=== PATIENT | female | born 1945 | race Caucasian/White ===

== ENCOUNTER 2017-04-20 09:24 | Emergency (ER) | payer MEDICARE ==
[2017-04-20] MEDS ORDERED: Sulfamethox/Trimethoprim DS 800/160* TAB PO ONE (11:48)
[2017-04-20] MEDS ORDERED: Cephalexin CAP* 500 MG PO ONE (11:48)
[2017-04-20 14:01] VITALS: BP 117/63
--- NOTE | 2017-04-24 08:59 | PN ---
Progress Note - Progress Note Date of Service: 04/20/17 Note: MRSA and s aureus negative on wound culture results. 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 placed on keflex and bactrim at discharge. appears to have susceptibility according to results. no further changes required at this time. patient has been following up with UC for dressing changes and re-check, appears to be improving.
--- NOTE | 2017-04-24 15:52 | ED ---
Minna Mares Gabriel scribed for Luis Armando Rai MD on 04/20/17 at 1153 . Skin Complaint - HPI Summary HPI Summary: This patient is a 71 year old F presenting to [facility] with a chief complaint of a cyst in the right hip crease since 04/16/17. The patient rates the pain 3/10 in severity. Symptoms aggravated by walking. Patient states the cyst began in the summer of this year and it was benign but since 04/16 it has been growing in size. At this time it began itching and has become erythematous. Patient is a type 2 diabetic and lets her sugar range from 120-250. She has a history of cysts and has had one on her jaw and back. - History of Current Complaint Chief Complaint: EDGeneral Time Seen by Provider: 04/20/17 11:24 Stated Complaint: POSSIBLE CYST ON RT LOWER APPENDAGE Hx Obtained From: Patient Onset/Duration: Started Days Ago - 4, Still Present Skin Exposure Onset/Duration: Days Ago - 4 Timing: Constant Onset Severity: Mild Current Severity: Moderate Pain Intensity: 3 Pain Scale Used: 0-10 Numeric Skin Location: Other: - right hip crease Character: Swelling, Redness Aggravating Symptom(s): Other: - walking Associated Signs & Symptoms: Negative - Allergy/Home Medications Allergies/Adverse Reactions: Allergies Allergy/AdvReac Type Severity Reaction Status Date / Time Ibuprofen [From Motrin] Allergy Severe Shakes Verified 04/20/17 09:37 PMH/Surg Hx/FS Hx/Imm Hx Endocrine/Hematology History: Reports: Hx Diabetes Denies: Hx Systemic Lupus Erythematosus Cardiovascular History: Denies: Hx Atrial Fibrillation, Hx Auto Implanted Cardiovert Defib, Hx Congestive Heart Failure, Hx Hypertension - HIGH BUT NOT ON MEDS, Hx Pacemaker/ ICD History: Denies: Hx Dialysis, Hx Renal Disease Musculoskeletal History: Denies: Hx Rheumatoid Arthritis Sensory History: Reports: Hx Hearing Aid Psychiatric History: Denies: Hx Panic Disorder - Cancer History Hx Chemotherapy: No Hx Radiation Therapy: No - Surgical History Surgery Procedure, Year, and Place: muscles in both eyes reconstructed, tonsilectomy, appendectomy, gender congruent surgery 2012, cyst removal BACK- [facility] 12/12/15. WISDOM TEETH REMOVAL Infectious Disease History: No Infectious Disease History: Denies: Traveled Outside the [place] in Last 30 Days - Family History Known Family History: Positive: None - no breast cancer, Diabetes Negative: Hypertension, Respiratory Disease, Seizure Disorder - Social History Alcohol Use: None Substance Use Type: Reports: None Smoking Status (MU): Never Smoked Tobacco Review of Systems Negative: Fever, Chills Negative: Erythema Negative: Sore Throat Negative: Chest Pain Negative: Shortness Of Breath, Cough Negative: Abdominal Pain, Vomiting, Nausea Negative: dysuria, hematuria Negative: Myalgia, Edema Positive: Other - cyst . Negative: Rash Neurological: Negative - dizziness All Other Systems Reviewed And Are Negative: Yes Physical Exam - Summary Physical Exam Summary: Constitutional: Well-developed, Well-nourished, Alert. (-) Distressed Skin: 2cm fluctuant area over the right inguinal crease, no lymphadenopathy HENT: Normocephalic; Atraumatic Eyes: Conjunctiva normal Neck: Musculoskeletal ROM normal neck. (-) JVD, (-) Stridor, (-) Tracheal deviation Cardio: Rhythm regular, rate normal, Heart sounds normal; Intact distal pulses; The pedal pulses are 2+ and symmetric. Radial pulses are 2+ and symmetric. (-) Murmur Pulmonary/Chest wall: Effort normal. (-) Respiratory distress, (-) Wheezes, (-) Rales Abd: Soft, (-) Tenderness, (-) Distension, (-) Guarding, (-) Rebound Musculoskeletal: (-) Edema Lymph: (-) Cervical adenopathy Neuro: Alert, Oriented x3 Psych: Mood and affect Normal Triage Information Reviewed: Yes Vital Signs On Initial Exam: Initial Vitals Temp Pulse Resp BP Pulse Ox 97.8 F 90 20 151/73 98 04/20/17 09:32 04/20/17 09:32 04/20/17 09:32 04/20/17 09:32 04/20/17 09:32 Vital Signs Reviewed: Yes - Sola Coma Scale Coma Scale Total: 15 Procedures - Incision and Drainage Site: right inguinal crease Anesthesia: Lidocaine Instrument(s): Scalpel Packing: Gauze Diagnostics - Vital Signs Vital Signs Temp Pulse Resp BP Pulse Ox 04/20/17 09:32 97.8 F 90 20 151/73 98 - Laboratory Lab Statement: Any lab studies that have been ordered have been reviewed, and results considered in the medical decision making process. Course/Dx - Course Assessment/Plan: This patient is a 71 year old F presenting to [facility] with a chief complaint of a cyst in the right hip crease since 04/16/17. The patient rates the pain 3/10 in severity. Symptoms aggravated by walking. Patient states the cyst began in the summer of this year and it was benign but since 04/16 it has been growing in size. At this time it began itching and has become erythematous. Patient is a type 2 diabetic and lets his sugar range from 120- 250. She has a history of cysts and has had one on her jaw and back. There was sebaceous material during the drainage. I suspected it began as a sebaceous cyst. Test results with no significant abnormalities except for blood glucose of 300. In the ED course the patient was given Keflex and Bactrim. Patient will be discharged with prescription for Keflex and Bactrim and follow up from Urgent care for repacking of gauze. The patient is agreeable with this plan. - Diagnoses Provider Diagnoses: Infected sebaceous cyst Discharge - Discharge Plan Condition: Stable Disposition: HOME Prescriptions: Cephalexin CAP* [Keflex CAP*] 500 mg PO QID #40 cap Sulfamethox/Trimethoprim DS* [Bactrim DS 800/160 TAB*] 1 tab PO BID #20 tab Patient Education Materials: Cephalexin (By mouth), Sulfamethoxazole/ Trimethoprim (By mouth) Referrals: Ari Abbott MD [Primary Care Provider] - Additional Instructions: Follow up with urgent care on Thursday and they should be change the packing. RETURN TO THE EMERGENCY DEPARTMENT FOR CHANGING OR WORSENING SYMPTOMS. The documentation as recorded by the Minna hood Gabriel accurately reflects the service I personally performed and the decisions made by , Luis Armando Rai MD.
== END 2017-04-20 14:00 | disposition home or self-care (01) ==
LOC: ED 09:24
DX: L72.3 Sebaceous cyst (principal); E11.9 Type 2 diabetes mellitus without complications; Z88.6 Allergy status to analgesic agent
CPT/HCPCS: 10060; 87070; 87076; 87077; 87186; 87205; 87640; 87641; 99282; A9270-GY

== ENCOUNTER 2017-04-22 13:59 | Emergency (ER) | payer MEDICARE ==
[2017-04-22 14:15] VITALS: BP 159/69
--- NOTE | 2017-04-22 14:58 | UC ---
HPI Wound/Suture Re-check - HPI Summary HPI Summary: seen 2 days ago and had an I&D of an abscess in right groin--Here to have packing and dressing changed - History Of Current Complaint Chief Complaint: UCSkin Stated Complaint: DRESSING CHANGE Time Seen by Provider: 04/22/17 14:24 Hx Obtained From: Patient Onset/Duration: Gradual Onset, Other - healing Surgical Site: right groin Severity: Mild - Allergies/Home Medications Allergies/Adverse Reactions: Allergies Allergy/AdvReac Type Severity Reaction Status Date / Time Ibuprofen [From Motrin] Allergy Severe Shakes Verified 04/20/17 09:37 Irbesartan Allergy DIZZINESS, Verified 04/22/17 14:23 NAUSEA Liraglutide [From Victoza] Allergy DIZZINESS, Verified 04/22/17 14:23 NAUSEA Lisinopril Allergy facial Verified 04/22/17 14:23 swelling Phenol [From Victoza] Allergy DIZZINESS, Verified 04/22/17 14:23 NAUSEA Propylene Glycol Allergy DIZZINESS, Verified 04/22/17 14:23 [From Victoza] NAUSEA PMH/Surg Hx/FS Hx/Imm Hx Previously Healthy: No Endocrine History: Diabetes Cardiovascular History: Hypertension - Surgical History Surgical History: Yes Surgery Procedure, Year, and Place: muscles in both eyes reconstructed, tonsilectomy, appendectomy, gender congruent surgery 2012, cyst removal BACK- [facility] 12/12/15. WISDOM TEETH REMOVAL - Family History Known Family History: Positive: None - no breast cancer - Social History Occupation: Retired Lives: With Family Alcohol Use: None Substance Use Type: None Smoking Status (MU): Never Smoked Tobacco Review of Systems Constitutional: Negative Skin: Negative, Other - no drainage from site-wound Clean and dry some sloughing tissue no erythema no pain Eyes: Negative ENT: Negative Respiratory: Negative Cardiovascular: Negative Gastrointestinal: Negative Genitourinary: Negative Motor: Negative Neurovascular: Negative Musculoskeletal: Negative Neurological: Negative Psychological: Negative Is Patient Immunocompromised?: No All Other Systems Reviewed And Are Negative: Yes Physical Exam Triage Information Reviewed: Yes Appearance: Well-Appearing, No Pain Distress, Well-Nourished Vital Signs: Initial Vital Signs Temp 98.3 F 04/22/17 14:12 Pulse 76 04/22/17 14:12 Resp 16 04/22/17 14:12 BP 159/69 04/22/17 14:12 Pulse Ox 100 04/22/17 14:12 Vital Signs Reviewed: Yes Eye Exam: Normal Eyes: Positive: Conjunctiva Clear ENT Exam: Normal ENT: Positive: Normal ENT inspection, Hearing grossly normal, Pharynx normal. Negative: Nasal congestion, Nasal drainage, Trismus, Muffled voice, Hoarse voice , Dental tenderness, Sinus tenderness Neck exam: Normal Neck: Positive: Supple, Nontender Respiratory Exam: Normal Respiratory: Positive: Chest non-tender, No respiratory distress, No accessory muscle use Cardiovascular Exam: Normal Cardiovascular: Positive: RRR, Pulses Normal, Brisk Capillary Refill Abdominal Exam: Normal Abdomen Description: Positive: Nontender, Soft Musculoskeletal Exam: Normal Musculoskeletal: Positive: Strength Intact, ROM Intact, No Edema Neurological Exam: Normal Neurological: Positive: Alert Psychological Exam: Normal Skin Exam: Other Skin: Positive: Other - no drainage from site-wound Clean and dry some sloughing tissue no erythema no pain Re-Evaluation - Re-Evaluation First Eval Change: Improved - packing removed, wound washed with betadine, repacked with plain packing Mepilex dressing applied---Patient tolerated wellopen are 1.5 cm diameter sloughing skin about 1 cm around incision Course/Dx - Course Course Of Treatment: continue antibiodics as planned, return in 2 days for dressing change, follow blood pressure with pcp - Differential Dx - Laceration/Wound Provider Diagnoses: Healing abrcess right groin s/p I&D, Poorly controlled hypertension Discharge - Discharge Plan Condition: Stable Disposition: HOME Patient Education Materials: Wound Healing and Your Diet (ED), Hypertension (ED ) Referrals: Ari Abbott MD [Primary Care Provider] - 1 Week Additional Instructions: Return in 2 days for dressing change and packing removal---
== END 2017-04-22 15:10 | disposition home or self-care (01) ==
LOC: UCEAST 13:59
DX: L02.214 Cutaneous abscess of groin (principal); I10 Essential (primary) hypertension; Z88.6 Allergy status to analgesic agent; Z88.8 Allergy status to other drugs, medicaments and biological substances
CPT/HCPCS: 99211; G0463

== ENCOUNTER 2017-04-25 11:49 | Emergency (ER) | payer MEDICARE ==
[2017-04-25 13:59] VITALS: BP 155/68
--- NOTE | 2017-04-25 14:23 | UC ---
HPI Wound/Suture Re-check - HPI Summary HPI Summary: comes for dressing change of I&D done 5 days ago, denies pain, fever or d/c from wound, had iodoform packing 4 days ago. - History Of Current Complaint Chief Complaint: UCWounds Stated Complaint: DRESSING CHANGE Time Seen by Provider: 04/25/17 13:58 Hx Obtained From: Patient Onset/Duration: Still Present Severity: Mild Pain Scale Used: 0-10 Numeric - 0 - Allergies/Home Medications Allergies/Adverse Reactions: Allergies Allergy/AdvReac Type Severity Reaction Status Date / Time Ibuprofen [From Motrin] Allergy Severe Shakes Verified 04/25/17 13:59 Irbesartan Allergy DIZZINESS, Verified 04/25/17 13:59 NAUSEA Liraglutide [From Victoza] Allergy DIZZINESS, Verified 04/25/17 13:59 NAUSEA Lisinopril Allergy facial Verified 04/25/17 13:59 swelling Phenol [From Victoza] Allergy DIZZINESS, Verified 04/25/17 13:59 NAUSEA Propylene Glycol Allergy DIZZINESS, Verified 04/25/17 13:59 [From Victoza] NAUSEA PMH/Surg Hx/FS Hx/Imm Hx Previously Healthy: Yes Endocrine History: Diabetes, Dyslipidemia Cardiovascular History: Hypertension - Surgical History Surgical History: Yes Surgery Procedure, Year, and Place: muscles in both eyes reconstructed, tonsilectomy, appendectomy, gender congruent surgery 2012, cyst removal BACK- [facility] 12/12/15. WISDOM TEETH REMOVAL - Family History Known Family History: Positive: None - no breast cancer - Social History Alcohol Use: None Substance Use Type: None Smoking Status (MU): Never Smoked Tobacco Review of Systems Constitutional: Negative All Other Systems Reviewed And Are Negative: Yes Physical Exam Triage Information Reviewed: Yes Appearance: Well-Appearing, Obese Vital Signs: Initial Vital Signs Temp 97.1 F 04/25/17 13:56 Pulse 77 04/25/17 13:56 Resp 18 04/25/17 13:56 BP 155/68 04/25/17 13:56 Pulse Ox 100 04/25/17 13:56 Vital Signs Reviewed: Yes Eye Exam: Normal Skin Exam: Other - small indurated tissue with central incision and healing abscess with iodoform packing on right inguinal area Course/Dx - Course Course Of Treatment: return in 4 days for dressing change - Differential Dx - Laceration/Wound Provider Diagnoses: abscess sebaceous cyst s/p I&D Discharge - Discharge Plan Condition: Stable Disposition: HOME Patient Education Materials: Abscess (ED) Referrals: Ari Abbott MD [Primary Care Provider] -
== END 2017-04-25 14:32 | disposition home or self-care (01) ==
LOC: UCEAST 11:49
DX: L02.214 Cutaneous abscess of groin (principal); L72.3 Sebaceous cyst; Z88.6 Allergy status to analgesic agent; Z88.8 Allergy status to other drugs, medicaments and biological substances; E11.9 Type 2 diabetes mellitus without complications; E78.5 Hyperlipidemia, unspecified; I10 Essential (primary) hypertension; E66.9 Obesity, unspecified
CPT/HCPCS: 99211; G0463

== ENCOUNTER 2022-09-27 16:15 | Inpatient (IN) ==
[2022-09-27 19:02] LABS: Hematocrit 33.5 % (35-45); Mean Corpuscular Hemoglobin 26.2 pg (27-33); Mean Corpuscular Hgb Conc 32.8 g/dL (31-36); Mean Corpuscular Volume 79.7 fL (80-97); Mean Platelet Volume 8.1 fL (7.5-11.2); Platelet Count 335 10^3/uL (150-450); Red Cell Distribution Width 19.2 % (12-17); White Blood Count 19.6 10^3/uL (3.8-11.8)
[2022-09-27 19:23] LABS: Albumin 4.2 g/dL (3.2-5.2); Albumin/Globulin Ratio 1.3 (1-3); Calcium 9.7 mg/dL (8.6-10.3); Creatinine, Serum 1.31 mg/dL (0.51-0.95); Globulin 3.3 g/dL (2-4); Potassium 4.1 mmol/L (3.5-5.0); Total Bilirubin 0.6 mg/dL (0.2-1.0); Total Protein 7.5 g/dL (6.4-8.9); eGFR CKD-EPI 42.5 (>60)
[2022-09-27 19:41] LABS: ABS Basophils 0.1 10^3/uL (0.0-0.1); ABS Eosinophils 2.1 10^3/uL (0.0-0.5); ABS Lymphocytes 0.7 10^3/uL (1.0-4.8); ABS Neutrophils 14.8 10^3/uL (1.5-7.6); ABS Nucleated RBC 0.01 10^3/ul; Eosinophil % 10.7 %; Lymphocyte % 3.4 %; Nucleated Red Blood Cells % 0.1 /100 WBC (0.0-0.4)
[2022-09-27 20:12] LABS: C Reactive Protein 56.41 mg/L (<8.01); Magnesium 1.8 mg/dL (1.9-2.7)
[2022-09-27 20:41] LABS: TSH Ultra Thyroid Stim Horm 2.71 mcIU/mL (0.34-5.60)
[2022-09-27 21:00] LABS: Urine Appearance Clear; Urine Bilirubin Negative (Negative); Urine Blood Negative (Negative); Urine Color Yellow; Urine Glucose Negative (Negative); Urine Ketones Negative (Negative); Urine Nitrite Negative (Negative); Urine Protein 2+(100 mg/dL) (Negative); Urine Specific Gravity 1.015 (1.002-1.030); Urine Urobilinogen Negative (Negative)
[2022-09-27 21:11] LABS: Urine Bacteria Absent (Absent); Urine Red Blood Cell Trace(0-2/hpf) (Absent); Urine Squamous Epithelial Cell Present (Absent); Urine White Blood Cell Trace(0-5/hpf) (Absent)
[2022-09-27] MEDS ORDERED: Iodixanol (CONTRAST) 320 MG/ML 100 ML SDV IV ONE (22:11)
[2022-09-28] MEDS ORDERED: Dextrose 50% Syringe 50 ml 25 GM/50 ML SYRINGE IV PUSH PRN (04:05)
[2022-09-28 08:18] LABS: Ferritin 1439.9 ng/mL (11-307)
[2022-09-28] MEDS: Fluticasone NASAL SPRAY 50MCG 16 gm SPRAY BTL BOTH NARES SCH (09:46)
[2022-09-28] MEDS ORDERED: Magnesium Sulfate 2 gm BAG 2 GM/50 ML BAG IVPB ONE (09:56)
[2022-09-28] MEDS: INSULIN GLARGINE LIXISENATIDE SUBCUT SCH (15:24)
[2022-09-28] MEDS: INSUL SUBCUT SCH (15:24)
[2022-09-28] MEDS: PTO: Metformin ER 750 mg TAB (NF) PO SCH (20:03)
[2022-09-28] MEDS: AMLODIPINE BESYLATE 2.5 MG PO SCH (20:03)
[2022-09-28] MEDS: ESTRADIOL 2 MG PO SCH (20:03)
[2022-09-28] MEDS ORDERED: Enoxaparin 40 MG/0.4 ML SYR SUBCUT SCH (21:00)
[2022-09-29 06:42] LABS: Hematocrit 29.2 % (35-45); Hemoglobin 9.7 g/dL (11.5-14.3); Mean Corpuscular Hemoglobin 26.8 pg (27-33); Mean Corpuscular Hgb Conc 33.1 g/dL (31-36); Mean Corpuscular Volume 81.1 fL (80-97); Platelet Count 266 10^3/uL (150-450); Red Cell Distribution Width 19.5 % (12-17); White Blood Count 16.5 10^3/uL (3.8-11.8)
[2022-09-29 06:44] LABS: INR 1.26 (0.88-1.18)
[2022-09-29 06:58] LABS: Calcium 8.5 mg/dL (8.6-10.3); Creatinine, Serum 1.26 mg/dL (0.51-0.95); Magnesium 1.9 mg/dL (1.9-2.7); eGFR CKD-EPI 44.5 (>60)
[2022-09-29 07:01] LABS: ABS Basophils 0.2 10^3/uL (0.0-0.1); ABS Eosinophils 2.2 10^3/uL (0.0-0.5); ABS Lymphocytes 0.7 10^3/uL (1.0-4.8); ABS Monocytes 1.5 10^3/uL (0.0-0.9); ABS Neutrophils 11.9 10^3/uL (1.5-7.6); Eosinophil % 13.6 %; Lymphocyte % 4.3 %
[2022-09-29] MEDS ORDERED: Iron Sucrose 200 MG in NS 0.9% 100 ml BAG 100 ML IVPB ONE (09:54)
[2022-09-29] MEDS: PIOGLITAZONE 15 MG PO SCH (11:13)
[2022-09-29] MEDS: Fluticasone NASAL SPRAY 50MCG 16 gm SPRAY BTL BOTH NARES SCH (11:13)
[2022-09-29] MEDS: INSUL SUBCUT SCH (14:12)
[2022-09-29] MEDS: INSULIN GLARGINE LIXISENATIDE SUBCUT SCH (14:12)
[2022-09-29] MEDS ORDERED: fentaNYL 100 mcg/2 ml 50 MCG/ML VIAL ONE (15:23)
[2022-09-29] MEDS: ESTRADIOL 2 MG PO SCH (19:49)
[2022-09-29] MEDS: PTO: Metformin ER 750 mg TAB (NF) PO SCH (19:49)
[2022-09-29] MEDS: AMLODIPINE BESYLATE 2.5 MG PO SCH (19:50)
[2022-09-30 07:00] LABS: Hematocrit 26.9 % (35-45); Hemoglobin 8.9 g/dL (11.5-14.3); Mean Corpuscular Hemoglobin 27.1 pg (27-33); Mean Corpuscular Hgb Conc 33.1 g/dL (31-36); Mean Corpuscular Volume 81.9 fL (80-97); Mean Platelet Volume 8.3 fL (7.5-11.2); Platelet Count 234 10^3/uL (150-450); Red Blood Count 3.28 10^6/uL (3.63-4.92); Red Cell Distribution Width 19.9 % (12-17); White Blood Count 16.5 10^3/uL (3.8-11.8)
[2022-09-30 07:06] LABS: INR 1.25 (0.88-1.18)
[2022-09-30 07:18] LABS: Calcium 8.1 mg/dL (8.6-10.3); Creatinine, Serum 1.24 mg/dL (0.51-0.95); Magnesium 1.9 mg/dL (1.9-2.7); Potassium 4.2 mmol/L (3.5-5.0); eGFR CKD-EPI 45.4 (>60)
[2022-09-30 08:11] LABS: ABS Basophils 0.1 10^3/uL (0.0-0.1); ABS Eosinophils 2.2 10^3/uL (0.0-0.5); ABS Lymphocytes 0.7 10^3/uL (1.0-4.8); ABS Monocytes 1.7 10^3/uL (0.0-0.9); ABS Neutrophils 11.9 10^3/uL (1.5-7.6); Anisocytosis 2+; Eosinophil % 13.2 %; Polychromasia 1+
[2022-09-30] MEDS: PIOGLITAZONE 15 MG PO SCH (09:34)
[2022-09-30] MEDS: Fluticasone NASAL SPRAY 50MCG 16 gm SPRAY BTL BOTH NARES SCH (09:42)
[2022-09-30] MEDS ORDERED: Iron Sucrose 200 MG in NS 0.9% 100 ml BAG 100 ML IVPB ONE (09:55)
[2022-09-30] MEDS: INSULIN GLARGINE LIXISENATIDE SUBCUT SCH (13:54)
[2022-09-30] MEDS: INSUL SUBCUT SCH (13:54)
[2022-09-30] MEDS: PTO: Metformin ER 750 mg TAB (NF) PO SCH (20:11)
[2022-09-30] MEDS: AMLODIPINE BESYLATE 2.5 MG PO SCH (20:12)
[2022-09-30] MEDS: ESTRADIOL 2 MG PO SCH (20:12)
[2022-10-01] MEDS: Fluticasone NASAL SPRAY 50MCG 16 gm SPRAY BTL BOTH NARES SCH (09:13)
[2022-10-01] MEDS: PIOGLITAZONE 15 MG PO SCH (09:13)
[2022-10-01] MEDS: Polyethylene Glycol 3350 17 GM PACKET PO PRN (09:14)
[2022-10-01] MEDS: INSULIN GLARGINE LIXISENATIDE SUBCUT SCH (13:39)
[2022-10-01] MEDS: INSUL SUBCUT SCH (13:39)
[2022-10-01 17:46] LABS: Anaplasma phagocytophilum Negative (Negative); B. miyamotoi PCR, B Negative (Negative); Babesia divergens/MO-1 Negative (Negative); Babesia ducani Negative (Negative); Ehrlichia chaffeensis Negative (Negative); Ehrlichia ewingii/canis Negative (Negative); Ehrlichia muris eauclairensis Negative (Negative)
[2022-10-01] MEDS: PTO: Metformin ER 750 mg TAB (NF) PO SCH (20:36)
[2022-10-01] MEDS: AMLODIPINE BESYLATE 2.5 MG PO SCH (20:37)
[2022-10-01] MEDS: ESTRADIOL 2 MG PO SCH (20:41)
[2022-10-02] MEDS: Polyethylene Glycol 3350 17 GM PACKET PO PRN (09:05)
[2022-10-02] MEDS: PIOGLITAZONE 15 MG PO SCH (09:05)
[2022-10-02] MEDS: Fluticasone NASAL SPRAY 50MCG 16 gm SPRAY BTL BOTH NARES SCH (09:06)
[2022-10-02] MEDS: INSUL SUBCUT SCH (13:18)
[2022-10-02] MEDS: INSULIN GLARGINE LIXISENATIDE SUBCUT SCH (13:18)
[2022-10-02] MEDS: PTO: Metformin ER 750 mg TAB (NF) PO SCH (21:11)
[2022-10-02] MEDS: AMLODIPINE BESYLATE 2.5 MG PO SCH (21:12)
[2022-10-02] MEDS: Senna TAB 8.6 mg TAB PO SCH (21:13)
[2022-10-02] MEDS: ESTRADIOL 2 MG PO SCH (21:14)
[2022-10-03] MEDS: PIOGLITAZONE 15 MG PO SCH (08:10)
[2022-10-03] MEDS: Fluticasone NASAL SPRAY 50MCG 16 gm SPRAY BTL BOTH NARES SCH (08:36)
[2022-10-03] MEDS ORDERED: Polyethylene Glycol 3350 17 GM PACKET PO SCH (09:00)
[2022-10-03] MEDS: INSUL SUBCUT SCH (14:08)
[2022-10-03] MEDS: INSULIN GLARGINE LIXISENATIDE SUBCUT SCH (14:08)
[2022-10-03] MEDS: Senna TAB 8.6 mg TAB PO SCH (20:33)
[2022-10-03] MEDS: AMLODIPINE BESYLATE 2.5 MG PO SCH (20:42)
[2022-10-03] MEDS: ESTRADIOL 2 MG PO SCH (20:42)
[2022-10-03] MEDS: PTO: Metformin ER 750 mg TAB (NF) PO SCH (20:42)
[2022-10-04 05:41] VITALS: BP 114/70
[2022-10-04] MEDS: PIOGLITAZONE 15 MG PO SCH (07:45)
[2022-10-04] MEDS: Fluticasone NASAL SPRAY 50MCG 16 gm SPRAY BTL BOTH NARES SCH (07:51)
[2022-10-04] MEDS ORDERED: Polyethylene Glycol 3350 17 GM PACKET PO SCH (09:00)
== END 2022-10-04 11:15 | disposition home or self-care (01) | DRG 436 ==
LOC: EDHOLD 16:15 → ED 16:15 → SUATTDRO 09-28 03:21 → MED 09-28 05:57
PROVIDERS: ADMIT Internal Medicine; ATTEND Internal Medicine